=== PATIENT | male | born 1990 | race Two or more races ===

== ENCOUNTER 2023-03-28 13:58 | Emergency (ER) | payer MEDICAID ==
[~2023-03-28] VITALS: Ht 188 cm; Wt 57.9 kg
[2023-03-28 15:18] VITALS: BP 121/58; PULSE 76; RESP 14; TEMP 98.4; O2SAT 99
== END 2023-03-28 17:41 | disposition home or self-care (01) ==
LOC: ER 13:58
DX: S63.281A Dislocation of proximal interphalangeal joint of left index finger, initial encounter (principal); X58.XXXA Exposure to other specified factors, initial encounter; Y93.89 Activity, other specified; Y92.89 Other specified places as the place of occurrence of the external cause; Y99.8 Other external cause status
CPT/HCPCS: 26750; 73130